=== PATIENT | female | born 1935 | race Caucasian/White ===

== ENCOUNTER 2018-03-31 18:37 | Inpatient (IN) | payer MEDICAID, MEDICARE ==
[~2018-03-31] VITALS: Ht 152.4 cm; Wt 0.9 kg
[~2018-03-31 18:37] MED LIST: ASPI-1158 PO; DIGO250T4 PO; DILT240C92 PO; LEVO75TA7 PO; MAGN400T26 PO; RIVA20TA PO
[2018-03-31] MEDS ORDERED: SODIUM CHLORIDE 0.9% 1,000 ML IV ONE (23:41)
[2018-03-31] MEDS ORDERED: FAMOTIDINE 20MG/2ML VIAL IV STA (23:41)
[2018-03-31] MEDS ORDERED: ONDANSETRON HCL 4MG/2ML INJ IV STA (23:41)
[2018-04-01 00:51] LABS: BASOPHILS % 0.8 % (0.0-2.0); EOSINOPHILS % 1.7 % (0.0-5.0); HEMATOCRIT. 31.6 % (36.0-48.0); HEMOGLOBIN. 10.8 g/dL (12.0-16.0); LYMPHOCYTES % 31.7 % (20.0-50.0); MEAN CORPUSCULAR HEMOGLOBIN 34.7 pg (28.0-32.0); MEAN CORPUSCULAR VOLUME 101.7 fL (81.0-99.0); MEAN PLATELET VOLUME 7.2 fl (7.4-10.4); MONOCYTES % 10.7 % (2.0-8.0); NEUTROPHILS % 55.1 % (40.0-76.0); PLATELET 309 x1000/uL (130-400); RED BLOOD CELL COUNT 3.11 mill/uL (4.2-5.4); RED CELL DISTRIBUTION WIDTH 14.8 % (11.6-14.6)
[2018-04-01 00:57] LABS: CHLORIDE 104 mEq/L (98-107)
[2018-04-01 00:58] LABS: PROTHROMBIN TIME 10.5 sec (9.1-11.1)
[2018-04-01] MEDS ORDERED: ACETAMINOPHEN 325MG TABLET PO PRN (08:00)
[2018-04-01] MEDS ORDERED: CLONIDINE 0.1MG TABLET PO PRN (08:00)
[2018-04-01] MEDS ORDERED: ONDANSETRON HCL 4MG/2ML INJ IV PRN (08:00)
[2018-04-01] MEDS ORDERED: MAGNESIUM/ALUMINUM HYDROXIDE/SIMETHICONE 30ML UDC PO PRN (08:00)
[2018-04-01] MEDS ORDERED: PANTOPRAZOLE SODIUM 40 MG/VIAL IV SCH ×2 (09:00→21:00)
[2018-04-01 10:59] VITALS: BP 122/59
[2018-04-01 12:00] VITALS: BP 122/59
[2018-04-01] MEDS: FERROUS SULFATE 325MG TABLET PO SCH (13:02)
[2018-04-01] MEDS: SODIUM CHLORIDE 0.9% 1,000 ML IV SCH (13:03)
[2018-04-01] MEDS ORDERED: SIMETHICONE 40 MG/0.6 ML 30ML ONE (14:12)
[2018-04-01] MEDS ORDERED: SODIUM CHLORIDE 0.9% 10ML VIAL ONE (14:13)
[2018-04-01] MEDS ORDERED: MIDAZOLAM HCL 5 MG/5 ML VIAL IV PRN (14:52)
[2018-04-01] MEDS ORDERED: FENTANYL CITRATE/PF 50MCG/ML 2ML VIAL IV PRN (14:53)
[2018-04-01] MEDS ORDERED: MIDAZOLAM HCL 5 MG/5 ML VIAL ONE (14:55)
[2018-04-01] MEDS ORDERED: FENTANYL CITRATE/PF 50MCG/ML 2ML VIAL ONE (14:55)
[2018-04-01 16:00] VITALS: BP 118/68
[2018-04-01] MEDS: SUCRALFATE 1G TABLET PO SCH ×2 (16:58→20:32)
[2018-04-01] MEDS: DILTIAZEM HCL 30MG TABLET PO SCH ×2 (16:59→23:45)
[2018-04-01 20:00] VITALS: BP 111/67
[2018-04-01 23:40] LABS: BASOPHILS % 0.3 % (0.0-2.0); EOSINOPHILS % 1.4 % (0.0-5.0); HEMATOCRIT. 31.5 % (36.0-48.0); HEMOGLOBIN. 10.7 g/dL (12.0-16.0); LYMPHOCYTES % 22.5 % (20.0-50.0); MEAN CORPUSCULAR HEMOGLOBIN 34.7 pg (28.0-32.0); MEAN PLATELET VOLUME 7.1 fl (7.4-10.4); NEUTROPHILS % 66.8 % (40.0-76.0); PLATELET 282 x1000/uL (130-400); RED BLOOD CELL COUNT 3.09 mill/uL (4.2-5.4); RED CELL DISTRIBUTION WIDTH 14.6 % (11.6-14.6)
[2018-04-01 23:53] LABS: TOTAL IRON BINDING CAPACITY 252 ug/dL (250-450)
[2018-04-01 23:54] LABS: LDL CHOLESTEROL 55 mg/dL (5-100)
[2018-04-01 23:55] LABS: CREATINE KINASE 40 IU/L (26-192)
[2018-04-01 23:56] LABS: HDL CHOLESTEROL 60 mg/dL (40-59); T4 FREE 0.98 ng/dL (0.76-1.46)
[2018-04-01 23:58] LABS: CREATINE KINASE MB FRACTION 1.3 ng/mL (0.5-3.6)
[2018-04-02] VITALS: BP 127/48
[2018-04-02] MEDS: SODIUM CHLORIDE 0.9% 1,000 ML IV SCH ×2 (01:40→18:20)
[2018-04-02 04:00] VITALS: BP 124/40
[2018-04-02] MEDS: DILTIAZEM HCL 30MG TABLET PO SCH ×3 (05:31→17:31)
[2018-04-02 07:25] LABS: BASOPHILS % 0.4 % (0.0-2.0); EOSINOPHILS % 1.7 % (0.0-5.0); HEMATOCRIT. 29.9 % (36.0-48.0); HEMOGLOBIN. 10.4 g/dL (12.0-16.0); LYMPHOCYTES % 22.1 % (20.0-50.0); MEAN CORPUSCULAR HEMOGLOBIN 35.9 pg (28.0-32.0); MEAN CORPUSCULAR VOLUME 102.9 fL (81.0-99.0); MEAN PLATELET VOLUME 7.2 fl (7.4-10.4); MONOCYTES % 10.7 % (2.0-8.0); NEUTROPHILS % 65.1 % (40.0-76.0); PLATELET 274 x1000/uL (130-400); RED CELL DISTRIBUTION WIDTH 14.9 % (11.6-14.6)
[2018-04-02 07:51] LABS: CHLORIDE 110 mEq/L (98-107)
[2018-04-02 08:00] VITALS: BP 125/59
[2018-04-02 08:03] LABS: PHOSPHORUS 3.6 mg/dL (2.5-4.9)
[2018-04-02 08:04] LABS: LDL CHOLESTEROL 54 mg/dL (5-100)
[2018-04-02 08:05] LABS: CREATINE KINASE 36 IU/L (26-192); CREATINE KINASE MB FRACTION < 1.0 ng/mL (0.5-3.6); HDL CHOLESTEROL 56 mg/dL (40-59)
[2018-04-02 08:20] LABS: DIGOXIN 0.7 ng/mL (0.9-2.0)
[2018-04-02] MEDS: FERROUS SULFATE 325MG TABLET PO SCH (09:35)
[2018-04-02] MEDS: SUCRALFATE 1G TABLET PO SCH ×4 (09:35→20:11)
[2018-04-02] MEDS: OMEPRAZOLE 20MG CAPSULE EXTENDED RELEASE PO SCH (09:36)
[2018-04-02 10:09] LABS: FOLIC ACID (FOLATE) SERUM >20 ng/mL ng/mL (>5.38)
[2018-04-02 10:19] LABS: VITAMIN B12 SERUM 1272 pg/mL (211-911)
[2018-04-02 11:13] LABS: FERRITIN 38 ng/mL (10-291)
[2018-04-02 12:00] VITALS: BP 104/58
[2018-04-02 16:00] VITALS: BP 125/84
[2018-04-02 20:00] VITALS: BP 122/55
[2018-04-02] MEDS: ASCORBIC ACID 500 MG TABLET PO SCH (20:11)
[2018-04-03] VITALS: BP 118/57
[2018-04-03 04:00] VITALS: BP 118/60
[2018-04-03] MEDS: DILTIAZEM HCL 30MG TABLET PO SCH ×2 (06:00)
[2018-04-03 06:56] LABS: BASOPHILS % 0.4 % (0.0-2.0); EOSINOPHILS % 2.5 % (0.0-5.0); HEMATOCRIT. 30.6 % (36.0-48.0); HEMOGLOBIN. 10.5 g/dL (12.0-16.0); MEAN CORPUSCULAR HEMOGLOBIN 35.1 pg (28.0-32.0); MEAN CORPUSCULAR VOLUME 102.4 fL (81.0-99.0); MEAN PLATELET VOLUME 7.2 fl (7.4-10.4); MONOCYTES % 11.1 % (2.0-8.0); PLATELET 274 x1000/uL (130-400); RED BLOOD CELL COUNT 2.99 mill/uL (4.2-5.4); RED CELL DISTRIBUTION WIDTH 14.6 % (11.6-14.6)
[2018-04-03 07:08] LABS: CHLORIDE 109 mEq/L (98-107)
[2018-04-03 08:00] VITALS: BP 121/62
[2018-04-03] MEDS: ASCORBIC ACID 500 MG TABLET PO SCH (08:28)
[2018-04-03] MEDS: FERROUS SULFATE 325MG TABLET PO SCH (08:28)
[2018-04-03] MEDS: OMEPRAZOLE 20MG CAPSULE EXTENDED RELEASE PO SCH (08:28)
[2018-04-03] MEDS: SUCRALFATE 1G TABLET PO SCH (08:31)
[2018-04-03] MEDS ORDERED: PANT40TA4 MT (09:45)
[2018-04-03] MEDS ORDERED: SUCR1TAB30 MT (09:45)
[2018-04-03] MEDS ORDERED: PANTOPRAZOLE 40MG DR TABLET PO SCH (10:00)
[2018-04-03 10:03] VITALS: BP 121/62
[2018-04-03] MEDS: SODIUM CHLORIDE 0.9% 1,000 ML IV SCH (11:28)
[2018-04-03] MEDS ORDERED: SUCRALFATE 1G TABLET PO SCH (12:40)
== END 2018-04-03 12:50 | disposition home or self-care (01) | DRG 381 ==
LOC: ER 18:37 → 7WST 04-01 02:07 → EDBEDREQ 04-01 02:09 → ENRESERV 04-01 07:29
PROVIDERS: ADMIT Family Medicine Adult Medicine; ATTEND Family Medicine Adult Medicine
PROC: 0DB68ZX Excision of Stomach, Via Natural or Artificial Opening Endoscopic, Diagnostic (ICD-10-PCS; 2018-04-01)
PROC: 0DB58ZX Excision of Esophagus, Via Natural or Artificial Opening Endoscopic, Diagnostic (ICD-10-PCS; principal; 2018-04-01 14:00)
DX: K22.11 Ulcer of esophagus with bleeding (principal); I48.92 Unspecified atrial flutter; K29.61 Other gastritis with bleeding; D50.0 Iron deficiency anemia secondary to blood loss (chronic); E03.9 Hypothyroidism, unspecified; I10 Essential (primary) hypertension; I25.10 Atherosclerotic heart disease of native coronary artery without angina pectoris; I48.2 Chronic atrial fibrillation; J45.909 Unspecified asthma, uncomplicated; K44.9 Diaphragmatic hernia without obstruction or gangrene; Z79.01 Long term (current) use of anticoagulants; Z79.899 Other long term (current) drug therapy; Z82.49 Family history of ischemic heart disease and other diseases of the circulatory system; Z88.2 Allergy status to sulfonamides
CPT/HCPCS: 36415; 71045; 80048; 80061; 80162; 82550; 82553; 82607; 82728; 82746; 83036; 83540; 83550; 83735; 83880; 84100; 84439; 84443; 84484; 85044; 85379; 86850; 86900; 88305; 88312; 88313; 93005; 93306; 99285; A4216; C1893; C9113; J2250; J2405; J3010; J3490; J7030